=== PATIENT | female | born 1960 | race Caucasian/White ===

== ENCOUNTER 2023-03-26 18:23 | Emergency (ER) | payer SELFPAY ==
[2023-03-26 21:14] LABS: Bilirubin Neg (Negative); Blood, Urine Negative (Negative); Clarity Slightly Cloudy (Clear); Glucose, Urine (Dipstick) Normal (Negative); Ketone, Urine Negative (Negative); Leukocyte 25 (Negative); Nitrite Negative (Negative); Protein, Urine (Dipstick) Negative (Neg-Trace); Urobilinogen Normal mg/dL (Less than 2)
[2023-03-26 21:27] LABS: Troponin I Less than 0.010 ng/mL (< 0.028)
[2023-03-26 21:31] LABS: Amphetamine Detected (NotDetected); Barbiturates Screen Not Detected (NotDetected); Benzodiazepine Screen Not Detected (NotDetected); Cocaine Metabolite Screen Not Detected (NotDetected); Methadone Not Detected (NotDetected); Methamphetamine Detected (NotDetected); Opiate Screen Not Detected (NotDetected); Oxycodone Screen Not Detected (NotDetected); Phencyclidine (PCP) Not Detected (NotDetected); THC/Cannabinoid Screen Not Detected (NotDetected); Tricyclic Screen Not Detected (NotDetected)
[2023-03-26 21:54] LABS: CAUTI Indications for Culture Alt mental st,lethar; RBC/HPF 0-3 HPF (0-3)
[2023-03-26 21:56] LABS: Squamous Epithelial 0-3 HPF (0-3)
[2023-03-26 21:57] LABS: Bacteria/HPF 2+ HPF (None Seen)
[2023-03-26 21:58] LABS: Mucous/LPF 1+ LPF (<2+)
[2023-03-26 22:00] LABS: Urine Culture Reflex No No
== END 2023-03-26 21:45 | disposition home or self-care (01) ==
LOC: CSHERS 18:23
DX: H60.503 Unspecified acute noninfective otitis externa, bilateral (principal); H73.93 Unspecified disorder of tympanic membrane, bilateral; I10 Essential (primary) hypertension
CPT/HCPCS: 70450; 71045; 80306; 81001; 84484; 93005